=== PATIENT | female | born 1975 | race Caucasian/White ===

== ENCOUNTER → 2021-08-28 | Outpatient (CLI) | payer OTHER ==
[~2021-08-28] MED LIST: LIDO700A21 TP; VALA10008 PO
--- NOTE | 2021-08-28 12:00 | RAD ---
EXAM: Abdomen, single view. HISTORY: Nausea. COMPARISON: None. FINDINGS: A frontal view of the abdomen is obtained. There is a small amount of gas and stool within the colon and rectal vault. There is no bowel obstruction. There is no free air. There are cholecyste ctomy clips. There is a small bone island within the right femoral neck. IMPRESSION: Nonobstructive bowel gas pattern. Electronically signed by: Anni Muhammad MD (08/28/2021 11:57 AM) [id number]
== END ==
LOC: RAD 11:31
PROVIDERS: ATTEND Physician Assistant
DX: R11.0 Nausea (principal); R10.13 Epigastric pain
CPT/HCPCS: 74019

== ENCOUNTER 2021-08-30 22:28 | Emergency (ER) | payer OTHER ==
[~2021-08-30] VITALS: Ht 167.6 cm; Wt 75.0 kg
--- NOTE | 2021-08-30 22:37 | PHYS DOC ---
General Adult EDM: Chief Complaint: BACK PAIN OR INJURY HPI: HPI: ".. I was working at the [email or web address]... at [employer].. and all sudden I started hurting really bad in my Lt flank.. it a really weird pain.. burning.. tingle.. it bad.. I would rather have a ... .. Patient is a 46 year old female who presents with above hx and complaints of back pain Has followed with [facility] in past. Patient denies any past history of kidney stones. Patient did have chickenpox as a child. Patient denies any trauma. Patient denies any fever or chills. Patient denies any history immunosuppression. No recent travel. Patient does have localization pain in left flank. Does not appear to be radiate significantly to lower abdomen. Patient has had chickenpox as a child. There is some redness along the T7-8 dermatome left. The skin is very sensitive even to light touch in this area. Review of Systems: Review of Systems: Constitutional: Denies fever or chills Eyes: Denies change in visual acuity HENT: Denies nasal congestion or sore throat Respiratory: Denies cough or shortness of breath Cardiovascular: Denies chest pain or edema GI: Denies abdominal pain, nausea, vomiting, bloody stools or diarrhea : Denies dysuria Musculoskeletal: Complains of left back pain Integument: Denies rash Neurologic: Denies headache, focal weakness or sensory changes Endocrine: Denies polyuria or polydipsia Lymphatic: Denies swollen glands Psychiatric: Denies depression or anxiety Family History: Family History: Noncontributory to presentation Current Medications: Current Meds: See nursing for home meds Allergies: Allergies: No known allergies Physical Exam: PE: Constitutional: Well developed, well nourished, no acute distress, non-toxic appearance. [] HENT: Normocephalic, atraumatic, bilateral external ears normal, oropharynx fa[address] st, no oral exudates, nose normal. [] Eyes: PERRLA, EOMI, conjunctiva normal, no discharge. [] Neck: Normal range of motion, no tenderness, supple, no stridor. [] Cardiovascular:Heart rate regular rhythm, no murmur [] Lungs & Thorax: Bilateral breath sounds equal apex with few scattered wheezes a uscultation [] Abdomen: Bowel sounds normal, soft, no tenderness, no masses, no pulsatile masses. [] Complains of severe left flank pain Skin: Warm, dry, no erythema, no rash. [] Back: No tenderness, no CVA tenderness. [] Extremities: No tenderness, no cyanosis, no clubbing, ROM intact, no edema. [] Neurologic: Alert and oriented X 3, normal motor function, normal sensory function, no focal deficits noted. [] Psychologic: Affect anxious, judgement normal, mood normal. [] EKG: EKG: [] Radiology/Procedures: Radiology/Procedures: []Signed PATIENT: NEVILEL SALES ACCOUNT: [id number] : 1975 LOCATION: ER AGE: 46 SEX: F EXAM STATUS: PRE ER ORD. PHYSICIAN: KENIA GIL MD REASON: Lt flank pain- severe PROCEDURE: CT ABDOMEN PELVIS WO CONTRAST PQRS Compliance Statement: One or more of the following individualized dose reduction techniques were utilized for this examination: 1. Automated exposure control 2. Adjustment of the mA and/or kV according to patient size 3. Use of iterative reconstruction technique CT ABDOMEN+PELVIS WO Clinical Indication: Reason: Lt flank pain- severe / Spl. Instructions: / Hist ory: Comparison: None. Technique: Helical CT imaging of the abdomen and pelvis is performed without IV or oral contrast. Findings: Evaluation of solid organs and bowel is limited without oral and IV contrast, decreasing sensitivity for detection of abnormal findings. The lung bases are clear. Cardiac size is normal. Cholecystectomy. The liver, spleen, pancreas, adrenal glands, and abdominal aorta are normal. There is no hydronephrosis or perinephric stranding. There is no renal calculus. The stomach is unremarkable. There is no small bowel obstruction. The appendix is normal. There is no colon wall thickening. There is no abdominal adenopathy or free fluid. Uterus and ovaries are unremarkable. The urinary bladder is normal. There is no pelvic free fluid. No acute bone abnormality. Vacuum disc phenomenon of L5/S1. IMPRESSION: No acute abdominal or pelvic abnormality. No obstructive uropathy. Electronically signed by: Castillo Lutz MD (08/30/2021 11:58 PM) [facility] DICTATED AND SIGNED BY: CASTILLO LUTZ MD DATE: 08/30/21 2241 CC: KENIA GIL MD; PCP,NO ~ Heart Score: C/O Chest Pain: N/A Risk Factors: Risk Factors: DM, Current or recent (<one month) smoker, HTN, HLP, family history of CAD, obesity. Risk Scores: Score 0 - 3: 2.5% MACE over next 6 weeks - Discharge Home Score 4 - 6: 20.3% MACE over next 6 weeks - Admit for Clinical Observation Score 7 - 10: 72.7% MACE over next 6 weeks - Early Invasive Strategies Course & Med Decision Making: Course & Med Decision Making Pertinent Labs and Imaging studies reviewed. (See chart for details) Push fluids. Monitor for development of rash on left flank. Take Tylenol and ibuprofen for discomfort. Take Valacyclovir 1 gm three times day. Follow up with primary. Return if any concerns. Patient vies if she develop blisters at the site pain that might be covered because it can be spread by topical transfer. Impression; 1. Lt Dermatone Pain- T-7-8, [] Biju Disclaimer: Biju Disclaimer: This electronic medical record was generated, in whole or in part, using a voice recognition dictation system. Departure Departure: Referrals: PCP,NO (PCP) Scripts Lidocaine (Lidocaine PATCH ) 1 Each Adh..patch 1 EACH TP DAILY for FOR LOCAL PAIN, #10 PATCH REMOVE AFTER 12 HOURS Prov: KENIA GIL MD 08/31/21 Valacyclovir Hcl (VALACYCLOVIR) 1,000 Mg Tablet 1000 MG PO TID for zoster for 7 Days, #21 TAB Prov: KENIA GIL MD 08/31/21 KENIA GIL MD August 30, 2021 22:37
[2021-08-30 23:27] LABS: CLARITY,URINE CLEAR; COLOR,URINE YELLOW; GLUCOSE,URINE NEG (NEG)
[2021-08-30 23:28] LABS: BACTERIA,URINE 0 /HPF (0-FEW); NITRITE,URINE NEG (NEG); SQUAMOUS EPITHELIAL CELL,UR OCC /LPF; UROBILINOGEN,URINE 0.2 mg/dL (0.2 mg/dL); WBC,URINE OCC /HPF (0-4)
[2021-08-30 23:33] LABS: AMPHETAMINE/METHAMPHETAMINE NEG (NEG); BARBITURATES NEG (NEG); BENZODIAZEPINES NEG (NEG); CANNABINOIDS NEG (NEG); COCAINE NEG (NEG); METHADONE NEG (NEG); OPIATES NEG (NEG); PHENCYCLIDINE NEG (NEG)
[2021-08-30] MEDS ORDERED: ACYCLOVIR 200 MG CAPSULE PO ONE (23:45)
[2021-08-30] MEDS ORDERED: KETOROLAC 30 MG/ML VIAL. IVP ONE (23:45)
[2021-08-30] MEDS ORDERED: IV RINGERS SOLUTION,LACTATED 1,000 ML IV SCH (23:45)
[2021-08-30] MEDS ORDERED: MORPHINE SULFATE 10 MG/ML SYRINGE. SQ ONE (23:45)
[2021-08-30] MEDS ORDERED: ORPHENADRINE CITRATE 60 MG/2 ML VIAL. IV ONE (23:45)
[2021-08-30] MEDS ORDERED: ONDANSETRON PF 4 MG/2 ML VIAL. ONE (23:59)
--- NOTE | 2021-08-31 | RAD ---
PQRS Compliance Statement: One or more of the following individualized dose reduction techniques were utilized for this examinat ion: 1. Automated exposure control 2. Adjustment of the mA and/or kV according to patient size 3. Use of iterative reconstruction technique CT ABDOMEN+PELVIS WO Clinical Indication: Reason: Lt flank pain- severe / Spl. Instructions: / History: Comparison: None. Technique: Helical CT imaging of the abdomen and pelvis is performed without IV or oral contrast. Findings: Evaluation of solid organs and bowel is limited without oral and IV contrast, decreasing sensitivity for detection of abnormal findings. The lung bases are clear. Cardiac size is normal. Cholecystectomy. The liver, spleen, pancreas, adrenal glands, and abdominal aorta are normal. There is no hydronephrosis or perinephric stranding. There is no renal calculus. The stomach is unremarkable. There is no small bowel obstruction. The appendix is normal. There is no colon wall thickening. There is no abdominal adenopathy or free fluid. Uterus and ovaries are unremarkable. The urinary bladder is normal. There is no pelvic free fluid. No acute bone abnormality. Vacuum disc phenomenon of L5/S1. IMPRESSION: No acute abdominal or pelvic abnormality. No obstructive uropathy. Electronically signed by: Castillo Lutz MD (08/30/2021 11:58 PM) [facility]
[2021-08-31 00:28] LABS: BASO % 1 % (0-3); EOS # 0.1 x10^3/uL (0.0-0.7); EOS % 1 % (0-3); HEMATOCRIT 38.5 % (36.0-47.0); HEMOGLOBIN 13.2 g/dL (12.0-15.5); LYMPH # 3.2 x10^3/uL (1.0-4.8); LYMPH % 37 % (24-48); MEAN CORPUSCULAR HEMOGLOBIN 31 pg (25-35); MEAN CORPUSCULAR HGB CONC 34 g/dL (31-37); MEAN CORPUSCULAR VOLUME 91 fL (79-100); MONO # 0.6 x10^3/uL (0.0-1.1); MONO % 7 % (0-9); NEUT # 4.7 x10^3uL (1.8-7.7); NEUT % 55 % (31-73); PLATELET COUNT 268 x10^3/uL (140-400); RED BLOOD COUNT 4.21 x10^6/uL (3.50-5.40); RED CELL DISTRIBUTION WIDTH 12.5 % (11.5-14.5); WHITE BLOOD COUNT 8.7 x10^3/uL (4.0-11.0)
[2021-08-31 00:29] LABS: CALCIUM 8.8 mg/dL (8.5-10.1); CREATININE 0.7 mg/dL (0.6-1.0); GFR 90.5; POTASSIUM 3.8 mmol/L (3.5-5.1)
[2021-08-31] MEDS ORDERED: VALA10008 PO (01:15)
[2021-08-31] MEDS ORDERED: LIDO700A21 TP (01:15)
[2021-08-31] MEDS ORDERED: LIDOCAINE (700MG/PATCH) PATCH. TD SCH (01:19)
[2021-08-31 01:54] VITALS: BP 128/79
[2021-08-31] MEDS ORDERED: ONDANSETRON PF 4 MG/2 ML VIAL. IVP ONE (02:00)
[2021-08-31] MEDS ORDERED: PATCH REMOVAL. MC SCH (21:00)
== END 2021-08-31 01:53 | disposition home or self-care (01) ==
LOC: ER 22:28
DX: M79.2 Neuralgia and neuritis, unspecified (principal)
CPT/HCPCS: 36415; 74176; 80048; 80307; 81001; 81025; 85025; 96361; 96372; 96374; 96375; 99284; J1885; J2270; J2360; J7120